=== PATIENT | female | born 1975 | race African-American/Black ===

== ENCOUNTER 2023-04-07 15:39 | Emergency (ER) | payer BC, MEDICAID ==
[~2023-04-07] VITALS: Ht 162.6 cm; Wt 66.0 kg
[~2023-04-07 15:39] MED LIST: AMLO5TAB4 PO; APIX5TAB MT; COR6 PO; HYDR-4134 MT; LIDO700A30 TP; LISI10TA26 MT; P20 MT
[2023-04-07 15:54] VITALS: BP 162/97
[2023-04-07 16:27] LABS: BASOPHILS % 0.2 % (0.0-2.0); EOSINOPHILS % 0.1 % (0.0-5.0); HEMATOCRIT. 31.5 % (36.0-48.0); LYMPHOCYTES % 12.8 % (20.0-50.0); MEAN CORPUSCULAR HEMOGLOBIN 25.6 pg (28.0-32.0); MEAN PLATELET VOLUME 9.1 fl (7.4-10.4); MONOCYTES % 5.5 % (2.0-8.0); NEUTROPHILS % 81.4 % (40.0-76.0); PLATELET 427 x1000/uL (130-400); RED BLOOD CELL COUNT 3.89 mill/uL (4.2-5.4); RED CELL DISTRIBUTION WIDTH 20.6 % (11.6-14.6)
[2023-04-07 16:42] LABS: CHLORIDE 106 mEq/L (98-107)
== END 2023-04-07 20:51 | disposition left against medical advice (07) ==
LOC: ER 15:39
DX: R07.9 Chest pain, unspecified (principal); Z53.21 Procedure and treatment not carried out due to patient leaving prior to being seen by health care provider
CPT/HCPCS: 36415; 71045; 80053; 84484; 85025; 93005; 99281

== ENCOUNTER 2025-06-10 04:52 | Emergency (ER) | payer BC, MEDICAID ==
[~2025-06-10] VITALS: Ht 162.6 cm; Wt 73.0 kg
[~2025-06-10 04:52] MED LIST changes: -AMLO5TAB4 PO; +AMLO5TAB5 PO; -HYDR-4134 MT; +HYDR25TA78 MT
[2025-06-10 05:14] VITALS: O2SAT 100
[2025-06-10 05:32] VITALS: TEMP 36.7; O2SAT 99
[2025-06-10 05:40] VITALS: BP 136/89; PULSE 98; RESP 18
[2025-06-10] MEDS: IBUPROFEN 600MG TABLET PO ONE (05:40)
[2025-06-10 06:25] LABS: BASOPHILS % 1.3 % (0.0-2.0); EOSINOPHILS % 2.6 % (0.0-5.0); HEMATOCRIT. 33.0 % (36.0-48.0); HEMOGLOBIN. 10.8 g/dL (12.0-16.0); LYMPHOCYTES % 21.9 % (20.0-50.0); MEAN PLATELET VOLUME 8.5 fl (7.4-10.4); MONOCYTES % 10.0 % (2.0-8.0); NEUTROPHILS % 64.2 % (40.0-76.0); PLATELET 354 x1000/uL (130-400); RED BLOOD CELL COUNT 3.99 mill/uL (4.2-5.4); RED CELL DISTRIBUTION WIDTH 22.4 % (11.6-14.6)
[2025-06-10 06:29] LABS: ADD RBC MORPHOLOGY YES
[2025-06-10] MEDS: ONDANSETRON 4MG ODT PO ONE (06:29)
[2025-06-10 06:46] LABS: CREATININE 0.8 mg/dL (0.6-1.0); ETHANOL BLOOD < 10 mg/dL (<10); TROPONIN I HIGH SENSITIVITY 26 ng/L (3.0-34); UREA NITROGEN BLOOD 11 mg/dL (9-23)
[2025-06-10 06:48] LABS: ASPARTATE AMINOTRANSFERASE 15 IU/L (<34); BILIRUBIN DIRECT 0.1 mg/dL (<=3.0); BILIRUBIN TOTAL 0.6 mg/dL (0.1-1.0); PROTEIN TOTAL 7.7 g/dL (6.0-8.3)
[2025-06-10 06:48] LABS: *AMPHETAMINES SCREEN URINE NEGATIVE (NEGATIVE); *BARBITURATES SCREEN URINE NEGATIVE (NEGATIVE); *BENZODIAZEPINES SCREEN URINE NEGATIVE (NEGATIVE); *COCAINE SCREEN URINE NEGATIVE (NEGATIVE); METHADONE URINE SCREEN NEGATIVE (NEGATIVE); OPIATES URINE SCREEN NEGATIVE (NEGATIVE); PHENCYCLIDINE URINE SCREEN NEGATIVE (NEGATIVE)
[2025-06-10 06:49] LABS: CANNABINOID URINE SCREEN PRESUMPTIVE POSITIVE (NEGATIVE); ECSTASY MDMA SCREEN URINE NEGATIVE (NEGATIVE)
[2025-06-10 08:27] LABS: PLATELET ESTIMATE NORMAL
== END 2025-06-10 07:15 | disposition home or self-care (01) ==
LOC: ER 04:52
DX: R46.2 Strange and inexplicable behavior (principal); I48.91 Unspecified atrial fibrillation; I10 Essential (primary) hypertension; Z20.822 Contact with and (suspected) exposure to COVID-19; Z88.0 Allergy status to penicillin; Z79.899 Other long term (current) drug therapy; Z98.51 Tubal ligation status
CPT/HCPCS: 80076; 80305; 80048; 80307; 80329; 80320; 85025; 84484; 36415; 71045; 93005; 99285; 87426; Q0162; G0480